=== PATIENT | female | born 1995 | race Caucasian/White ===

== ENCOUNTER 2022-12-16 13:19 | Emergency (ER) | payer BC, SELFPAY ==
[2022-12-16 13:25] VITALS: BP 118/73; PULSE 75; RESP 16; TEMP 37.1; O2SAT 99; BMI 20.9
[2022-12-16 15:00] LABS: Basophils Absolute Auto 0.02 K/uL (0.00-0.30); Basophils Percent Auto 0.2 % (0.0-3.0); Eosinophils Absolute Auto 0.08 K/uL (0.00-0.50); Eosinophils Percent Auto 0.9 % (0.0-7.0); Hematocrit 41.8 % (33.0-51.0); Hemoglobin* 13.5 gm/dL (12.0-16.0); Immature Granulocytes Abs Auto 0.01 K/uL (0.00-0.30); Immature Granulocytes Pct Auto 0.1 %; Lymphocytes Absolute Auto 2.67 K/uL (0.90-2.90); Lymphocytes Percent Auto 30.8 % (20-44); Mean Corpuscular HGB Conc 32 gm/dL (32-36); Mean Corpuscular Hemoglobin 28 pg (26-34); Mean Corpuscular Volume 87 fL (80-100); Monocytes Percent Auto 4.8 % (0.0-11.0); Neutrophils Absolute Auto 5.48 K/uL (1.7-7.0); Neutrophils Percent Auto 63.2 % (42.0-72.0); Platelet Count* 255 K/uL (140-440); RDW Coefficient of Variation % 13.8 % (11.5-15.5); Red Blood Count 4.81 m/uL (4.00-5.20); White Blood Count* 8.68 K/uL (4.50-11.00)
--- NOTE | 2022-12-16 15:07 | ED_ITS ---
HPI - Abdominal Pain General Chief Complaint: Rib Pain Stated Complaint: Pain beneath R rib Time Seen by Provider: 12/16/22 14:28 History of Present Illness HPI narrative: Patient is a 27-year-old woman who over the last several days developed progressive right upper quadrant pain. The pain radiates to the epigastrium. She has no symptoms of reflux. No change in her bowel or bladder. No change in her appetite. She states she is on control is not sexually active. She does not believe she is . She describes no shortness of breath cough fevers chills nausea vomiting or weakness. Patient's only home medication is Prozac. Related Data Allergies Allergy/AdvReac Type Severity Reaction Status Date / Time latex AdvReac Severe Anaphylaxis Verified 12/16/22 13:28 Review of Systems Status of ROS Reports: 10 or more systems reviewed and unremarkable except as noted in History and below [facility] Medical History Anxiety ?F41.9 - Anxiety disorder, unspecified (ICD-10) Social History Smoking Status: Never smoker Do you use any of these nicotine containing products: None Second hand tobacco smoke exposure: No How often do you have a drink containing alcohol: never AUDIT-C Alcohol total score: 0 Non-prescribed substance use: denies use Exam Narrative: Exam Narrative: EXAM GENERAL: Patient appears comfortable and well. EYES: No scleral icterus. LYMPH: No supraclavicular or cervical lymphadenopathy. SKIN: Visible skin seen during exam normal or with benign process only. EXT: No dependent lower extremity pedal edema. HEART: Regular rate and rhythm with no murmurs, rubs, or gallops. LUNGS: Clear to auscultation bilaterally with no crackles or wheezes. ABD: Soft, non tender, non distended. PSYCH: Good eye contact, speech is not pressured. Const: Vital Signs, click to edit/add: Vital Signs - 24 hr 12/16/22 13:25 Temperature 98.7 F Pulse Rate [Right Pulse Oximeter] 75 Respiratory Rate 16 Blood Pressure [Ri ght Upper Arm] 118/73 Pulse Oximetry 99 Oxygen Delivery Me thod Room Air Course Course Hospital Course: Patient presents with right upper quadrant pain. CBC CMP ultrasound of the liver and gallbladder are pending. Vital Signs Vital signs: Initial Vital Signs Temperature 98.7 F 12/16/22 13:25 Temperature Source Temporal Artery Scan 12/16/22 13:25 Pulse Rate 75 12/16/22 13:25 Pulse Rhythm Regular 12/16/22 13:25 Pulse Strength 3+ Normal 12/16/22 13:25 Respiratory Rate 16 12/16/22 13:25 Blood Pressure 118/73 12/16/22 13:25 Blood Pressure Mean 88 12/16/22 13:25 Blood Pressure Position Sitting 12/16/22 13:25 Pulse Oximetry 99 12/16/22 13:25 Oxygen Delivery Method Room Air 12/16/22 13:25 Vital Signs Temperature 98.7 F 12/16/22 13:25 Pulse Rate 75 12/16/22 13:25 Respiratory Rate 16 12/16/22 13:25 Blood Pressure 118/73 12/16/22 13:25 Pulse Oximetry 99 12/16/22 13:25 Oxygen Delivery Method Room Air 12/16/22 13:25 Temperature 98.7 F 12/16/22 13:25 Pulse Rate 75 12/16/22 13:25 Respiratory Rate 16 12/16/22 13:25 Blood Pressure 118/73 12/16/22 13:25 Pulse Oximetry 99 12/16/22 13:25 Oxygen Delivery Method Room Air 12/16/22 13:25 MDM - Abdominal Pain MDM Narrative Medical decision making narrative: Patient is a healthy 27-year-old woman who comes in with right upper quadrant pain. CBC CMP are normal. Exam is vital signs are normal. Ultrasound of the liver and gallbladder are normal. At this point I did offer reassurance advance diet activity as tolerated follow-up with primary care. No further re commendations at this time Differential Diagnosis Differential diagnosis: Likely abdominal pain, diverticulitis, endometriosis, gastroenteritis, pancreatitis and small bowel obstruction Lab Data Labs: Lab Results 12/16/22 Range/Units 14:50 WBC 8.68 (4.50-11.00) K/uL RBC 4.81 (4.00-5.20) m/uL Hgb 13.5 (12.0-16.0) gm/dL Hct 41.8 (33.0-51.0) % MCV 87 (80-100) fL MCH 28 (26-34) pg MCHC 32 (32-36) gm/dL RDW Coeff of [place] 13.8 (11.5-15.5) % Plt Count 255 (140-440) K/uL Neut % (Auto) 63.2 (42.0-72.0) % Lymph % (Auto) 30.8 (20-44) % [place] % (Auto) 4.8 (0.0-11.0) % Eos % (Auto) 0.9 (0.0-7.0) % Baso % (Auto) 0.2 (0.0-3.0) % Neut # (Auto) 5.48 (1.7-7.0) K/uL Lymph # (Auto) 2.67 (0.90-2.90) K/uL [place] # (Auto) 0.40 (0.00-0.90) K/UL Eos # (Auto) 0.08 (0.00-0.50) K/uL Baso # (Auto) 0.02 (0.00-0.30) K/uL Sodium 138 (135-149) mmol/L Potassium 4.7 (3.6-5.1) mmol/L Chloride 104 (96-114) mmol/L Carbon Dioxide 28 (20-32) mmol/L BUN 5 (5-24) mg/dL Creatinine 0.7 (0.5-1.5) mg/dL Estimated Creat Clear 100.75 Estimated GFR 122 ml/min Glucose 79 (60-115) mg/dL Calcium 9.2 (8.4-10.6) mg/dL Total Bilirubin 0.3 (0.1-1.5) mg/dL AST 29 (12-35) U/L ALT 18 (4-35) U/L Alkaline Phosphatase 55 (40-150) U/L Total Protein 7.4 (6.0-8.3) g/dL Albumin 4.3 (3.3-5.0) g/dL Discharge Plan Discharge Clinical Impression: Abdominal pain Patient Disposition: Home, Self-Care Condition: Stable Instructions: Abdominal Pain (ED) Additional Instructions: Monitor symptoms Advance activity and diet as tolerated Follow-up with your doctor as needed Activity Level: No Restrictions Discharge Diet: Regular Follow Up/Referrals: Eduardo Garcia DO [Primary Care Provider] - Stand Alone Forms: [facility] Info Instructions
[2022-12-16 15:10] LABS: Slide Review Reflex No
[2022-12-16 15:16] LABS: Albumin* 4.3 g/dL (3.3-5.0); Chloride* 104 mmol/L (96-114); Potassium* 4.7 mmol/L (3.6-5.1); Sodium* 138 mmol/L (135-149)
[2022-12-16 15:18] LABS: Creatinine* 0.7 mg/dL (0.5-1.5); Est. Creatinine Clearance* 100.75; Estimated Glomerular Filt Rate 122 ml/min
[2022-12-16 15:19] LABS: Alanine Aminotransferase* 18 U/L (4-35); Alkaline Phosphatase* 55 U/L (40-150); Aspartate Amino Transferase* 29 U/L (12-35); Bilirubin Total* 0.3 mg/dL (0.1-1.5); Blood Urea Nitrogen* 5 mg/dL (5-24); Carbon Dioxide* 28 mmol/L (20-32); Glucose* 79 mg/dL (60-115); Total Protein* 7.4 g/dL (6.0-8.3)
[2022-12-16 15:20] LABS: Calcium* 9.2 mg/dL (8.4-10.6)
--- NOTE | 2022-12-16 15:32 | CRLHL7_ITS ---
For Patients: As a result of the Century Cures Act, medical imaging exams and procedure reports are released immediately into your electronic medical record. You may view this report before your referring provider. If you have questions, please contact your health care provider. INDICATION: Right upper quadrant abdomen pain. TECHNIQUE: Ultrasound abdomen limited. Sonographic images of the right upper quadrant were obtained using cantu-scale and color Doppler images. COMPARISON: None. FINDINGS: Liver: Normal in size and echotexture. No suspicious masses. No intrahepatic biliary dilatation. Gallbladder: No stones or sludge. Normal wall thickness. No pericholecystic fluid. Common bile duct: 3 mm. Pancreas: Obscured Vasculature: Proximal aorta is unremarkable. IMPRESSION: No cholelithiasis, cholecystitis, or biliary obstruction. Dictated by Westley Reed MD @ 12/16/2022 5:00:17 PM (Electronically Signed)
--- NOTE | 2022-12-16 16:10 | ED.NURSE ---
Pt verbally discharged by
== END 2022-12-16 16:10 | disposition home or self-care (01) ==
PROVIDERS: Emergency Provider Internal Medicine; PCP Family Medicine
DX: R10.9 Unspecified abdominal pain (principal)
CPT/HCPCS: 36415; 76705; 80053; 85025; 99283; 99284